=== PATIENT | female | born 1975 | race Two or more races ===

== ENCOUNTER 2021-01-03 12:59 | Outpatient (CLI) | payer OTHER | END 2021-01-03 13:09 | disposition home or self-care (01) | LOC: SONOGRAMA 12:59 | DX: E06.1 Subacute thyroiditis (principal) ==

== ENCOUNTER 2021-07-11 08:20 | Outpatient (CLI) | payer OTHER | END 2021-07-11 08:27 | disposition home or self-care (01) | LOC: SONOGRAMA 08:20 | PROVIDERS: ATTEND Internal Medicine Hematology & Oncology | DX: N83.8 Other noninflammatory disorders of ovary, fallopian tube and broad ligament (principal); D75.89 Other specified diseases of blood and blood-forming organs; R74.8 Abnormal levels of other serum enzymes; E78.2 Mixed hyperlipidemia ==

== ENCOUNTER 2021-07-11 10:07 | Outpatient (CLI) | payer OTHER | END 2021-07-11 10:14 | disposition home or self-care (01) | LOC: T RESPIRAT 10:07 | PROVIDERS: ATTEND Internal Medicine Hematology & Oncology | DX: R06.02 Shortness of breath (principal) ==

== ENCOUNTER 2021-09-12 09:35 | Outpatient (CLI) | payer OTHER | END 2021-09-12 11:02 | disposition home or self-care (01) | LOC: SONOGRAMA 09:35 | PROVIDERS: ATTEND Internal Medicine Endocrinology, Diabetes & Metabolism | DX: E04.1 Nontoxic single thyroid nodule (principal) ==

== ENCOUNTER 2022-01-19 08:31 | Outpatient (CLI) | payer OTHER | END 2022-01-19 08:54 | disposition home or self-care (01) | LOC: MAMO-SONO 08:31 | DX: N64.4 Mastodynia (principal); N63.0 Unspecified lump in unspecified breast; N60.09 Solitary cyst of unspecified breast ==

== ENCOUNTER 2024-04-12 07:55 | Outpatient (CLI) | payer OTHER | END 2024-04-12 08:02 | disposition home or self-care (01) | LOC: SONOGRAMA 07:55 | PROVIDERS: ATTEND Internal Medicine Endocrinology, Diabetes & Metabolism | DX: E04.1 Nontoxic single thyroid nodule (principal) ==

== ENCOUNTER 2024-05-09 07:43 | Outpatient (CLI) | payer OTHER | END 2024-05-09 08:02 | disposition home or self-care (01) | LOC: TOM 07:43 | PROVIDERS: ATTEND Internal Medicine Endocrinology, Diabetes & Metabolism | DX: E04.1 Nontoxic single thyroid nodule (principal) ==